=== PATIENT | female | born 1985 | race Two or more races ===

== ENCOUNTER 2017-09-30 20:10 | Emergency (ER) | payer MEDICAID ==
[~2017-09-30] VITALS: Ht 170.2 cm; Wt 68.0 kg
[2017-09-30] MEDS ORDERED: NKM (20:43)
[2017-09-30 20:45] VITALS: BP 125/77
[2017-09-30] MEDS ORDERED: CARBAMAZEPINE200 M1 ORAL (21:09)
[2017-09-30 21:20] VITALS: BP 125/77
--- NOTE | 2017-09-30 21:59 | Emergency Room Report ---
History of Present Illness General Chief Complaint: Headache Source: Patient Present Illness HPI 31-year-old female in no significant past medical history presenting with right- sided facial pain for one day. The patient points chief, spasmodic, coming and going, can be severe. Also complaining of right forehead pain. Denies any neck pain, blurry vision, nausea, vomiting. States that she has never had this in the past. Pain is worsened with chewing or moving her cheeks. Allergies: Coded Allergies: No Known Allergies (Unverified , 09/30/17) Patient History Past Medical History: see triage record Past Surgical History: none Pertinent Family History: none Last Menstrual Period: 09/11/17 Reviewed Nursing Documentation: PMH: Agreed, PSxH: Agreed Nursing Documentation-PMH Past Medical History: No Stated History Review of Systems All Other Systems: negative except mentioned in HPI Physical Exam Vital Signs Date Time Temp Pulse Resp B/P (MAP) Pulse Ox O2 Delivery O2 Flow Rate FiO2 09/30/17 20:38 98.1 51 18 125/77 99 Room Air Sp02 EP Interpretation: reviewed, normal General Appearance: normal inspection, well appearing, no apparent distress, alert, GCS 15, non-toxic Head: normocephalic, atraumatic Eyes: bilateral eye normal inspection, bilateral eye PERRL, bilateral eye EOMI ENT: normal pharynx, normal voice, moist mucus membranes, other - Right-sided TMJ/right pupil region tender to palpation, no cellulitis noted, oropharynx is completely normal without any evidence of abscess. Neck: normal inspection, full range of motion, supple Respiratory: normal inspection, lungs clear, normal breath sounds, no respiratory distress, no retraction, no wheezing, speaking full sentences, chest symmetrical Cardiovascular #1: normal inspection, regular rate, rhythm, no edema, normal capillary refill Cardiovascular #2: 2+ radial (R), 2+ radial (L) Gastrointestinal: normal inspection, non tender, soft, non-distended, no guarding Musculoskeletal: normal inspection, back normal, normal range of motion, non- tender Neurologic: normal inspection, alert, oriented x3, responsive, motor strength/ tone normal, sensory intact, normal gait, speech normal Psychiatric: normal inspection, judgement/insight normal, memory normal Skin: normal inspection, normal color, no rash, warm/dry, well hydrated, normal turgor Medical Decision Making Diagnostic Impression: Primary Impression: Trigeminal neuralgia of right side of face Additional Impression: Headache ER Course 31-year-old female with right-sided facial pain for one day DDX: Clinically appears to be like trigeminal neuralgia given spasmodic in nature and location of pain, at this time I am not concerned with any acute intracranial bleed, tumor, patient is not having headache at that area only mostly in her cheek. No signs of oral infection or oral abscess. Plan: Will give Tylenol here as patient will be driving home ER course: Patient has remained stable during ED stay. Neurologically intact, conversing with family at bedside Disposition: Patient is to be discharged to home. Prescriptions given are carbamazepine for trigeminal neuralgia Patient is instructed to follow up with their primary care doctor within 5 days. Strict return precautions discussed with patient such as fever, chills, worsening/severe pain, headache, blurry vision, nausea, vomiting, which may indicate severe illness. Patient verbalizes understanding and agrees with plan. Patient also cautioned on the risk of having life-threatening rash secondary to carbamazepine although it is rare, patient instructed to immediately come to the emergency room Please note that this Emergency Department Report was dictated using [employer] technology software, occasionally this can lead to erroneous entry secondary to interpretation by the dictation equipment Last Vital Signs Date Time Temp Pulse Resp B/P (MAP) Pulse Ox O2 Delivery O2 Flow Rate FiO2 09/30/17 20:38 98.1 51 18 125/77 99 Room Air Disposition: HOME, SELF-CARE Condition: Stable Scripts Carbamazepine (CARBAMAZEPINE ER) 200 Mg Tab.er.12h 200 MG ORAL DAILY for 10 Days, #10 TAB 0 Refills Prov: Diaz Davis M.D. 09/30/17 Referrals: NOT CHOSEN IPA/,REFERRING (PCP) Patient Instructions: General Headache Without Cause, Trigeminal Neuralgia Additional Instructions: Please come back to the emergency room if you're experiencing severe worsening headache, blurry vision, nausea, vomiting, weakness or numbness of your hands or legs, or severe rash Diaz Davis M.D. Sep 30, 2017 21:59
== END 2017-09-30 21:20 | disposition home or self-care (01) ==
LOC: EMR 20:54
DX: G50.0 Trigeminal neuralgia (principal)
CPT/HCPCS: 99283